=== PATIENT | male | born 1960 | race Caucasian/White ===

== ENCOUNTER 2016-12-14 10:31 | Emergency (ER) | payer BC ==
[~2016-12-14] VITALS: Ht 177.8 cm; Wt 110.0 kg
[2016-12-14 10:33] VITALS: BP 143/92; PULSE 76; RESP 20; TEMP 98; O2SAT 94
[2016-12-14] MEDS ORDERED: ACETAMINOPHEN 325 MG TAB PO ONE (11:15)
--- NOTE | 2016-12-14 11:26 | PD ---
HPI Chief Complaint: Cold / Flu Symptoms Time Seen by Provider: 11:05 Travel History International Travel<30 days: No Contact w/Intl Traveler<30days: No Traveled to known affect area: No History of Present Illness HPI This is a 56-year-old male who is currently on vacation from [place]. He presents for evaluation of cough. Symptoms started 3 or 4 days ago. The cough is productive with yellow sputum. Associated sinus pressure, nasal congestion and hoarse voice. He's had no objective fevers or myalgias. He does feel that the room is cold. Denies sore throat, abdominal pain, ear pain, dysuria, flank pain, rash. He has no other complaints at this time. FOR[facility]LY [facility], [facility] Past Medical History Depression: Yes Hypertension: Yes Social History Alcohol Use: No Tobacco Use: No Allergies-Medications (Allergen,Severity, Reaction): Coded Allergies: No Known Allergies (Unverified , 12/14/16) Reported Meds & Prescriptions Reported Meds & Active Scripts Active Flonase Allergy Relief Children Nasal [place] (Fluticasone Nasal [place]) 50 Mcg/ Act [place] 2 [place] EACH NARE DAILY 10 Days 50 mcg/spray Amoxicillin 875 Mg Tab 875 Mg PO BID 10 Days Review of Systems Except as stated in HPI: all other systems reviewed are Neg Physical Exam Narrative GENERAL: Well-developed well-nourished male in no acute distress SKIN: Warm and dry. HEAD: Atraumatic. Normocephalic. EYES: Pupils equal and round. No scleral icterus. No injection or drainage. ENT: No nasal bleeding or discharge. Mucous membranes pink and moist. No oral pharyngeal erythema or exudate. Tympanic membranes clear. There is some tenderness to palpation to the frontal sinuses. NECK: Trachea midline. No JVD. No lymphadenopathy. CARDIOVASCULAR: Regular rate and rhythm. No murmur appreciated. RESPIRATORY: No accessory muscle use. Clear to auscultation. Breath sounds equal bilaterally. No crackles no wheezing or rhonchi GASTROINTESTINAL: Abdomen soft, non-tender, nondistended. MUSCULOSKELETAL: No obvious deformities. No clubbing. No cyanosis. No edema. NEUROLOGICAL: Awake and alert. No obvious cranial nerve deficits. Motor grossly within normal limits. Normal speech. Data Data Last Documented VS Vital Signs Date Time Temp Pulse Resp B/P Pulse Ox O2 Delivery O2 Flow Rate FiO2 12/14/16 10:33 98.0 76 20 143/92 94 Room Air Orders Influenzae A/B Antigen (12/14/16 11:10) Chest, Single Ap (12/14/16 ) Acetaminophen (Tylenol) (12/14/16 11:15) Ibuprofen (Motrin) (12/14/16 11:45) MDM Medical Decision Making Medical Screen Exam Complete: Yes Emergency Medical Condition: Yes Medical Record Reviewed: Yes Differential Diagnosis Sinusitis, bronchitis, rhinitis, pneumonia, influenza Narrative Course 56-year-old male with 3-4 days of cough with productive sputum production, sinus pressure, hoarse voice. Physical examination is reassuring. Plan is for influenza antigen, chest x-ray. Chest x-ray and flu test are negative. The patient is being discharged with amoxicillin and Flonase for what appears to be sinusitis and bronchitis. Diagnosis Primary Impression: Sinusitis Qualified Code: J01.90 - Acute non-recurrent sinusitis, unspecified location Additional Impression: Bronchitis Additional Instructions: Medication as prescribed. Stay well hydrated. Follow-up with primary care as needed and return for any emergent medical conditions. Med/Other Pt SpecificInfo: Prescription(s) given Scripts Fluticasone Nasal [place] (Flonase Allergy Relief Children Nasal [place])50 Mcg/Act Spray2 [place] EACH NARE DAILY 10 Days Ref 0 50 mcg/spray Prov:Reji Carrasco MD 12/14/16 Amoxicillin 875 Mg Jam578 Mg PO BID 10 Days Ref 0 Prov:Reji Carrasco MD 12/14/16 Disposition: 01 DISCHARGE HOME Condition: Stable Manpreet Chinchilla Dec 14, 2016 11:26
[2016-12-14] MEDS ORDERED: IBUPROFEN 600 MG TAB PO ONE (11:45)
--- NOTE | 2016-12-14 11:47 | RADRPT ---
EXAM DATE/TIME: 12/14/2016 11:23 [place] COMPARISON: No previous studies available for comparison. INDICATIONS : Cough and congestion for 2 days. MEDICAL HISTORY : None. SURGICAL HISTORY : None. ENCOUNTER: Initial ACUITY: 2 days PAIN SCORE: 2/10 LOCATION: Bilateral chest FINDINGS: A single view of the chest demonstrates the lungs to be symmetrically aerated without evidence of mas s, infiltrate or effusion. The cardiomediastinal contours are unremarkable. Osseous structures are intact. CONCLUSION: 1. Normal examination. John Benson MD on December 14, 2016 at 11:45 Board Certified Radiologist. This report was verified electronically.
[2016-12-14] MEDS ORDERED: AMOX875T PO (12:08)
[2016-12-14] MEDS ORDERED: FLUT1SPR9 EACH NARE (12:08)
== END 2016-12-14 12:31 | disposition home or self-care (01) ==
LOC: NEPB 10:31
DX: J01.90 Acute sinusitis, unspecified (principal); J40 Bronchitis, not specified as acute or chronic; I10 Essential (primary) hypertension; Z86.59 Personal history of other mental and behavioral disorders
CPT/HCPCS: 71010; 87804; 99283